=== PATIENT | female | born 2000 | race Caucasian/White ===

== ENCOUNTER → 2024-12-10 12:47 | Outpatient (REF) | payer BC, SELFPAY | LOC: HWRAD 12:47 | PROVIDERS: ATTENDING PHYSICIAN Internal Medicine Rheumatology; FAMILY PHYSICIAN Nurse Practitioner Adult Health | DX: M54.50 Low back pain, unspecified (principal); M54.89 Other dorsalgia | CPT/HCPCS: 72114; 72202 ==